=== PATIENT | male | born 1985 | race Caucasian/White ===

== ENCOUNTER 2017-11-14 22:52 | Emergency (ER) | payer BC ==
[2017-11-14] MEDS ORDERED: OLANZapine 10 MG/2 ML VIAL IM ONE (23:11)
--- NOTE | 2017-11-15 01:39 | EDPHY ---
H & P Smoking Status: Unknown if ever smoked Time Seen by Provider: 11/14/17 23:51 HPI/ROS: CHIEF COMPLAINT: Substance abuse, altered mental status HISTORY OF PRESENT ILLNESS: 32-year-old male presents to the emergency department with likely LSD ingestion and combative. The patient was parent Geo at a concert and was acting altered and was combative with staff. He required IM Haldol in the field and restraints. No known trauma. REVIEW OF SYSTEMS: Unobtainable due to patient's mental status. (Lynette Gonzalezrina Lavon) Past Medical/Surgical History: Unknown (Hetal Gonzalez) Social History: Unknown (Hetal Gonzalez) Physical Exam: General Appearance: Sleeping Eyes: Pupils equal and round. Extraocular motions are all intact. ENT: Mouth: Mucous membranes moist. Respiratory: No wheezing, rhonchi, or rales, lungs are clear to auscultation. Cardiovascular: Regular rate and rhythm. Gastrointestinal: Abdomen is soft and nontender, no masses, no rebound or guarding, bowel sounds normal. Neurological: Unable to test due to patient's mental status Skin: Warm and dry, no rashes. Musculoskeletal: Nontender to palpate along the cervical, thoracic or lumbar spine. Neck is supple. Extremities: Full range of motion and no peripheral edema. Psychiatric: No agitation currently. (Hetal Gonzalez) Constitutional: Initial Vital Signs Temperature (C) 36.6 C 11/14/17 22:53 Heart Rate 110 H 11/14/17 22:53 Respiratory Rate 16 11/14/17 22:53 Blood Pressure 129/76 H 11/14/17 22:53 O2 Sat (%) 93 11/14/17 22:53 O2 Delivery Mode Room Air Medical Decision Making ED Course/Re-evaluation: 32-year-old male presents to the emergency department after being combative and altered while using unknown substance at a concert. In the field the patient received IM Haldol. In the emergency department the patient was given 10 mg of IM Zyprexa. The patient initially required restraints for staff safety, however since that time, he has been taken out of restraints. This patient is resting comfortable in the emergency department. When he is more sober, he will be re-evaluated and likely discharged home. Care will be turned over to Dr. Peters for disposition and plan. (Hetal Gonzalez) The patient eventually was more awake and alert. He was able to walk with a steady gait. We plan to discharge him home. PHYSICIAN DOCUMENTATION: The patient was evaluated and managed by the Physician Mounter Saxophones. My co- signature indicates that I have reviewed this chart and I agree with the findings and plan of care as documented. I am the secondary supervising physician. (Hue Peters) Differential Diagnosis: Altered mental status including but not limited to hypoglycemia, infectious process, electrolyte abnormality, head injury and intoxicants. (Hetal Gonzalez) Care Turn Over: Care will be turned over to Dr. Swann review the at shift change for disposition and plan. (Hetal Gonzalez) - Data Points Medications Given: Discontinued Medications Olanzapine (Zyprexa Injection) 10 mg IM EDNOW ONE Stop: 11/14/17 23:12 Last Admin: 11/14/17 23:12 Dose: 10 mg Departure - Departure Disposition: Home, Routine, Self-Care Clinical Impression: Altered mental status, Polysubstance abuse Condition: Good Instructions: Polysubstance Abuse (ED) Additional Instructions: Please return to the emergency department if your worse in any way. Referrals: [facility] Hours [Outside] - As per Instructions
[2017-11-15 02:36] VITALS: BP 123/97
== END 2017-11-15 02:32 | disposition home or self-care (01) ==
DX: R41.82 Altered mental status, unspecified (principal); F19.10 Other psychoactive substance abuse, uncomplicated